=== PATIENT | female | born 1980 | race African-American/Black ===

== ENCOUNTER 2017-11-05 06:37 | Emergency (ER) | payer MEDICAID ==
[~2017-11-05] VITALS: Ht 162.6 cm; Wt 68.9 kg
--- NOTE | 2017-11-05 06:58 | NUR ---
Patient discharged to home in stable conditon. Written and verbal after care instructions given. Patient verbalizes understanding of instructions.
== END 2017-11-05 06:59 | disposition home or self-care (01) ==
LOC: ER 06:43
DX: L03.211 Cellulitis of face (principal); K04.7 Periapical abscess without sinus
CPT/HCPCS: A4663